=== PATIENT | female | born 1990 | race Caucasian/White ===

== ENCOUNTER 2021-04-28 23:05 | Emergency (ER) | payer OTHER ==
[~2021-04-28] VITALS: Ht 157.5 cm; Wt 74.8 kg
[2021-04-28] MEDS ORDERED: IBU800 MG PO (23:24)
[2021-04-28] MEDS ORDERED: ADDERALL 10 MG10 MG PO (23:24)
[2021-04-29 00:43] LABS: ABSOLUTE LYMPHOCYTES 3.8 thou/uL (0.8-5.3); ABSOLUTE MONOCYTES 0.5 thou/uL (0.0-1.2); ABSOLUTE NEUTROPHILS 4.4 thou/uL (1.6-8.1); BASOPHILS 0.4 %; HEMATOCRIT 35.9 % (37.0-47.0); HEMOGLOBIN 11.5 gm/dL (12.0-15.0); LYMPHOCYTES 43.3 %; MCV 62.5 fL (80.0-100.0); MONOCYTES 6.2 %; MPV 8.7 fl. (7.2-11.1); NUCLEATED RBCS 0 /100WBC; PLATELET COUNT* 299 thou/uL (150-400); POLYS 50.1 %; RBC 5.75 mil/uL (4.20-5.00); RDW-CV 15.9 % (10.5-14.5); WBC 8.8 thou/uL (4.0-11.0)
[2021-04-29 00:44] LABS: URINE BILIRUBIN NEGATIVE (Negative); URINE BLOOD 3+ (Negative); URINE CLARITY CLEAR; URINE COLOR YELLOW; URINE GLUCOSE-RANDOM NEGATIVE (Negative); URINE KETONES TRACE (Negative); URINE LEUKOCYTES-REFLEX NEGATIVE (Negative); URINE NITRITE-REFLEX NEGATIVE (Negative); URINE PROTEIN NEGATIVE (Negative); URINE UROBILINOGEN 0.2 E.U./dl (0.2-1.0)
[2021-04-29 00:52] LABS: AMP/METHAMP POSITIVE (Negative); BARBITURATES Negative (Negative); BENZODIAZEPINES Negative (Negative); COCAINE Negative (Negative); METHADONE Negative (Negative); OPIATES Negative (Negative); PCP Negative (Negative); THC POSITIVE (Negative)
[2021-04-29 01:02] LABS: BACTERIA-REFLEX 1-9 Few /HPF (None Seen); CASTS None Seen /LPF (None Seen); CRYSTALS None Seen /LPF (None Seen); MUCUS 0-3 Light strn/LPF (None Seen); SQUAMOUS 0-3 Few /LPF (0-3); TRANSITIONAL EPITHEL CELL 0-3 Few /LPF (None Seen); URINE RBC >20 Many /HPF (0-2); URINE WBC-REFLEX None Seen /HPF (0-5)
[2021-04-29 01:09] LABS: CALCIUM 9.6 mg/dL (8.5-10.1); CREATININE 0.8 mg/dL (0.6-1.3); POTASSIUM 3.3 mmol/L (3.5-5.1)
[2021-04-29 01:14] LABS: ALBUMIN 4.6 g/dL (3.4-5.0); TOTAL BILIRUBIN 0.7 mg/dL (<0.1-1.0); TOTAL PROTEIN 7.5 g/dL (6.4-8.2)
[2021-04-29] MEDS ORDERED: ACETAMINOPHEN-1 EAC2 PO (03:56)
[2021-04-29] MEDS ORDERED: CEPHALEXIN500 MG PO (03:56)
[2021-04-29] MEDS ORDERED: ZOFRAN ODT4 MG PO (03:56)
[2021-04-29 04:14] VITALS: BP 104/60
== END 2021-04-29 04:15 | disposition home or self-care (01) ==
LOC: M.ERS 23:05
PROVIDERS: Personal Emergency Response Attendant
DX: N39.0 Urinary tract infection, site not specified (principal); R10.84 Generalized abdominal pain; Z79.899 Other long term (current) drug therapy

== ENCOUNTER 2021-09-04 16:48 | Emergency (ER) | payer OTHER ==
[~2021-09-04] VITALS: Ht 157.5 cm; Wt 77.1 kg
[~2021-09-04 16:48] MED LIST: ACETAMINOPHEN-1 EAC2 PO; ADDERALL 10 MG10 MG PO; CEPHALEXIN500 MG PO; IBU800 MG PO; ZOFRAN ODT4 MG PO
[2021-09-04 17:44] LABS: ABSOLUTE LYMPHOCYTES 2.9 thou/uL (0.8-5.3); ABSOLUTE MONOCYTES 0.5 thou/uL (0.0-1.2); ABSOLUTE NEUTROPHILS 3.9 thou/uL (1.6-8.1); BASOPHILS 0.4 %; HEMOGLOBIN 11.2 gm/dL (12.0-15.0); LYMPHOCYTES 39.6 %; MCH 20.4 pg (26.0-34.0); MCV 65.8 fL (80.0-100.0); MONOCYTES 6.7 %; MPV 8.4 fl. (7.2-11.1); NUCLEATED RBCS 0 /100WBC; PLATELET COUNT* 292 thou/uL (150-400); POLYS 53.3 %; RBC 5.46 mil/uL (4.20-5.00); RDW-CV 16.9 % (10.5-14.5); WBC 7.2 thou/uL (4.0-11.0)
[2021-09-04 17:49] LABS: CALCIUM 8.3 mg/dL (8.5-10.1); CREATININE 0.8 mg/dL (0.6-1.3); POTASSIUM 3.1 mmol/L (3.5-5.1)
[2021-09-04 17:54] LABS: ALBUMIN 3.8 g/dL (3.4-5.0); TOTAL BILIRUBIN 0.3 mg/dL (<0.1-1.0); TOTAL PROTEIN 6.5 g/dL (6.4-8.2)
[2021-09-04 18:43] LABS: LARGE PLATELETS RARE; PLATELET ESTIMATE ADEQUATE
[2021-09-04 18:44] LABS: ANISOCYTOSIS 1+; POLYCHROMASIA Occasional
[2021-09-04 18:46] LABS: HYPOCHROMASIA 1+; MICROCYTES 2+
[2021-09-04] MEDS ORDERED: DULCOLAX STOOL100 M1 PO (19:12)
[2021-09-04 19:34] VITALS: BP 143/80
== END 2021-09-04 19:34 | disposition home or self-care (01) ==
LOC: M.ERS 16:48
PROVIDERS: Family Medicine
DX: K59.00 Constipation, unspecified (principal)